=== PATIENT | female | born 1960 | race African-American/Black ===

== ENCOUNTER 2024-07-14 13:14 | Emergency (ER) | payer MEDICAID, OTHER ==
[~2024-07-14] VITALS: Ht 165.1 cm; Wt 75.0 kg
[~2024-07-14 13:14] MED LIST: ACET1TAB14 PO; ALBU2.5V13 IH; DIAZ-570 PO; PVCXPC PO
[2024-07-14 13:34] VITALS: TEMP 98.4; O2SAT 96
[2024-07-14 17:00] VITALS: BP 141/75; PULSE 91; RESP 19; O2SAT 97
== END 2024-07-14 17:01 | disposition home or self-care (01) ==
LOC: ER 13:14
DX: M25.561 Pain in right knee (principal); M25.562 Pain in left knee; J45.909 Unspecified asthma, uncomplicated
CPT/HCPCS: 99281